=== PATIENT | male | born 1990 | race Caucasian/White ===

== ENCOUNTER 2016-12-31 06:26 | Emergency (ER) | payer BC ==
[2016-12-31] MEDS ORDERED: LIDOCAINE VIS-MYLANTA 30 ML UD PO ONE ×2 (06:40→06:41)
[2016-12-31 06:42] VITALS: TEMP 96.7
--- NOTE | 2016-12-31 06:44 | ED.PDOC ---
History of Present Illness - General Source: patient Exam Limitations: no limitations - History of Present Illness Initial Comments: The patient is a 26-year-old male presenting to the emergency room secondary to the acute onset of severe epigastric pain starting at around 3 AM this morning. He did have some significant heartburn 2 hours prior to that. He took 4 Advil this morningafter the pain started. No vomiting. Minimal nausea. No difficulty with urination or bowel movements. Pain is very central and epigastric. No pain with movement. No pain with percussion of the back. No pain with twisting, turning or taking deep breaths. He was feeling just fine yesterday. He does not take any daily anti-inflammatories. His only daily medication is famciclovir. pain is located just off midline to the right in the epigastric area Timing/Duration: 4-6 hours Severity: severe Improving Factors: nothing Worsening Factors: nothing Associated Symptoms: loss of appetite, malaise, nausea/vomiting <Lennox Mccarthy - Last Filed: 12/31/16 06:42> <Félix Connelly - Last Filed: 12/31/16 07:56> - General Chief Complaint: Abdominal Pain Stated Complaint: abd pain Time Seen by Provider: 12/31/16 06:37 - History of Present Illness Allergies/Adverse Reactions: Allergies Sulfamethoxazole w/Trimethoprim [From Bactrim] Adverse Reaction (Severe, Verified 05/05/15 10:10) Other yeast infection Home Medications: Ambulatory Orders Pantoprazole Tablet [Protonix] 40 mg PO ACBK #30 tab 12/31/16 Promethazine Tab [Phenergan Tablet] 50 mg PO .Q4H PRN #30 tab 12/31/16 Review of Systems - Review of Systems Constitutional: States: no symptoms reported EENTM: States: no symptoms reported Respiratory: States: no symptoms reported Cardiology: States: no symptoms reported Gastrointestinal/Abdominal: States: see HPI Genitourinary: States: no symptoms reported Musculoskeletal: States: no symptoms reported Skin: States: no symptoms reported Neurological: States: no symptoms reported Endocrine: States: no symptoms reported All other Systems: No Change from Baseline <Lennox Mccarthy - Last Filed: 12/31/16 06:42> Past Medical History (General) - Patient Medical History Hx Stroke: No Hx Congestive Heart Failure: No Hx Diabetes: No - Vaccination History Hx Influenza Vaccination: No - 2013 - Social History Hx Tobacco Use: No <Lennox Mccarthy - Last Filed: 12/31/16 06:42> Family Medical History - Family History Father Living Status: Still Living Hx Family Hypertension: Yes Hx Cardiac Disease: Yes <Lennox Mccarthy - Last Filed: 12/31/16 06:42> Physical Exam - Physical Exam General Appearance: Alert, Obvious distress Eye Exam: bilateral normal Ears, Nose, Throat: hearing grossly normal, normal pharynx Neck: full range of motion Respiratory: chest non-tender, lungs clear, normal breath sounds, no respiratory distress, no accessory muscle use Cardiovascular/Chest: normal peripheral pulses, regular rate, rhythm, no edema Peripheral Pulses: radial,right: 2+, radial,left: 2+, dorsalis pedis,right: 2+, dorsalis pedis,left: 2+, posterior tibialis,right: 2+, posterior tibialis,left: 2+ Gastrointestinal/Abdominal: soft, other - fairly pointed epigastric pain just to the right of midline in the upper abdomen. No definite guarding but questionable rebound at 1 point only. 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, no motor/sensory deficits, alert, normal mood/affect - very anxious, oriented x 3 Skin Exam: normal color Comments: Vital Signs - 24 hr 12/31/16 06:39 Temperature 96.7 F L Pulse Rate [ 75 MONITOR] Respiratory 22 Rate Blood Pressure 146/97 [Right Arm] O2 Sat by Pulse 96 Oximetry <Chanel Mccarthyy L - Last Filed: 12/31/16 06:42> Progress - Progress Progress: 12/31/16 07:46 Vital Signs - 8 hr 12/31/16 12/31/16 06:39 07:20 Temperature 96.7 F L Pulse Rate [ 75 65 MONITOR] Respiratory 22 18 Rate Blood Pressure 146/97 141/90 [Right Arm] O2 Sat by Pulse 96 95 Oximetry - EKG/XRAY/CT XRAY: ABD.series-no acute abnormalities;cholelthiasis/radiologist <Félix Connelly R - Last Filed: 12/31/16 07:56> Departure <Lennox Mccarthy L - Last Filed: 12/31/16 06:42> - Departure Time of Disposition: 07:14 Diet: bland diet, other - Avoid greasy,spicy,dairy foods and alcoholic beverages until better <JenniferObdulio sandovalHeard R - Last Filed: 12/31/16 07:56> - Departure Clinical Impression: Abdominal pain Qualifiers: Abdominal location: epigastric Qualified Code(s): R10.13 - Epigastric pain Disposition: Discharge to Home or Self Care Condition: Good Prescriptions: Pantoprazole Tablet [Protonix] 40 mg PO ACBK #30 tab Promethazine Tab [Phenergan Tablet] 50 mg PO .Q4H PRN #30 tab PRN Reason: Nausea Home Medications: Ambulatory Orders Pantoprazole Tablet [Protonix] 40 mg PO ACBK #30 tab 12/31/16 Promethazine Tab [Phenergan Tablet] 50 mg PO .Q4H PRN #30 tab 12/31/16 Additional Instructions: RETURN TO EMERGENCY ROOM NEEDED;PLEASE EXCUSE FROM WORK 2016;Return to regular work 01/04/2017 w/o limitation
[2016-12-31] MEDS ORDERED: SUCRALFATE 1 GM/10 ML 1 GM UD PO ONE (06:46)
[2016-12-31] MEDS ORDERED: PANTOPRAZOLE SODIUM TAB 40 MG PO ONE (06:46)
[2016-12-31 07:25] VITALS: O2SAT 95
--- NOTE | 2016-12-31 07:26 | RAD ---
EXAM: Acute abdominal series. INDICATION: Abdominal pain, acute. COMPARISON: None. FINDINGS: Cardiac silhouette: Unremarkable. Adry: Unremarkable. Lobar consolidation: None. Pleural effusion: None. Pneumothorax: None. Other: There is 7 mm calcification along the right upper quadrant, likely representing a gallstone Intraperitoneal free air: Negative. Bowel: No dilated loops of small bowel or air-fluid levels. Bones: Unremarkable. Other: None. IMPRESSION: Nonspecific, nonobstructed bowel gas pattern. Cholelithiasis. Electronically signed by: Kaleb Noble MD 12/31/2016 7:25 AM CDT Workstation: [id number]
[2016-12-31 08:13] VITALS: BP 126/82
== END 2016-12-31 08:00 | disposition home or self-care (01) ==
LOC: ER 06:26
DX: R10.13 Epigastric pain (principal); Z88.2 Allergy status to sulfonamides; Z88.8 Allergy status to other drugs, medicaments and biological substances

== ENCOUNTER 2017-02-11 22:39 | Emergency (ER) | payer BC ==
--- NOTE | 2017-02-11 23:24 | ED.PDOC ---
History of Present Illness - General Chief Complaint: Abdominal Pain Stated Complaint: epigastric pain Time Seen by Provider: 02/11/17 23:23 Information Source: patient, Vital Signs reviewed Exam Limitations: no limitations - History of Present Illness Initial Comments: Timbo Smith 26 y/o male with previous history of burning epigastric pain awaiting GI evaluation stated he had another bout of same symptoms started today then got worse tonight.He was prescribed h2 blockers on discharge from emergency room last time.He was given gi slider here in er but threw it up.Stated that he ate pizza,fried chicken,and broccoli today. Abdominal Pain Onset Location: epigastric Pain Radiation: no radiation Quality: burning, intermittent Timing/Duration: 7-24 hours Improving Factors: nothing Worsening Factors: nothing Associated Symptoms: denies symptoms, heartburn Review of Systems - Review of Systems Constitutional: States: no symptoms reported EENTM: States: no symptoms reported Respiratory: States: no symptoms reported Cardiology: States: no symptoms reported Gastrointestinal/Abdominal: States: see HPI Genitourinary: States: no symptoms reported Musculoskeletal: States: no symptoms reported Skin: States: no symptoms reported Past Medical History (General) - Patient Medical History Hx Stroke: No Hx Congestive Heart Failure: No Hx Diabetes: No Surgical History: no surgical history - Vaccination History Hx Tetanus, Diphtheria Vaccination: Yes Hx Influenza Vaccination: No - 2013 Hx Pneumococcal Vaccination: No - Social History Hx Tobacco Use: No Hx Alcohol Use: Yes - WEEKENDS Hx Substance Use: No Family Medical History - Family History Father Living Status: Still Living Hx Family Hypertension: Yes Hx Cardiac Disease: Yes Physical Exam - Physical Exam General Appearance: Alert, No apparent distress Eyes, Ears, Nose, Throat Exam: PERRL/EOMI, normal ENT inspection Neck: non-tender, full range of motion, supple Respiratory: chest non-tender, lungs clear Cardiovascular/Chest: normal peripheral pulses, regular rate, rhythm, no murmur Peripheral Pulses: No deficit Gastrointestinal/Abdominal: normal bowel sounds, soft, tenderness - epigastrium Back Exam: normal inspection, no CVA tenderness Extremity: normal range of motion, non-tender, no pedal edema, no calf tenderness Neurologic: alert, normal mood/affect, oriented x 3 Progress - Results/Orders Results/Orders: Vital Signs - 8 hr 02/11/17 23:55 Temperature 97.7 F Pulse Rate [ 72 left] Respiratory 18 Rate Blood Pressure 160/100 [left] O2 Sat by Pulse 99 Oximetry 02/12/17 01:01 Hold Metformin x 48Hrs [id number] Abdomen/Pelvis w/Contrast [CT] Stat Laboratory Results - last 24 hr 02/11/17 02/11/17 02/11/17 00:00 00:00 23:25 WBC 10.4 RBC 4.67 L Hgb 15.0 Hct 44.7 MCV 95.9 H MCH 32.1 H MCHC 33.6 RDW 13.2 Plt Count 241 MPV 8.5 Absolute Neuts (auto) 4.00 Absolute Lymphs (auto) 4.90 H Absolute Monos (auto) 1.20 H Absolute Eos (auto) 0.30 Absolute Basos (auto) 0.00 Neutrophils % 38.6 L Lymphocytes % 46.7 Monocytes % 11.5 H Eosinophils % 2.7 Basophils % 0.5 Sodium 139 Potassium 3.7 Chloride 103 Carbon Dioxide 28 Anion Gap 11.7 L BUN 15 Creatinine 1.26 BUN/Creatinine Ratio 11.9 Random Glucose 122 H Serum Osmolality 279.7 Calcium 8.6 Total Bilirubin 0.6 AST 19 ALT 17 Alkaline Phosphatase 62 Serum Total Protein 7.1 Albumin 4.0 Globulin 3.1 Albumin/Globulin Ratio 1.3 Lipase 37 Urine Color Urine Appearance Urine pH Ur Specific [place] Urine Protein Urine Glucose (UA) Urine Ketones Urine Blood Urine Nitrite Urine Bilirubin Urine Urobilinogen Ur Leukocyte Esterase Urine RBC Urine WBC Ur Epithelial Cells Urine Bacteria Urine Opiates Screen Negative Urine Barbiturates Negative Ur Phencyclidine Scrn Negative U Amphetamin/Meth Scrn Negative U Benzodiazepines Scrn Negative U Cocaine Metab Screen Negative U Cannabinoids Screen Negative 02/12/17 00:23 WBC RBC Hgb Hct MCV MCH MCHC RDW Plt Count MPV Absolute Neuts (auto) Absolute Lymphs (auto) Absolute Monos (auto) Absolute Eos (auto) Absolute Basos (auto) Neutrophils % Lymphocytes % Monocytes % Eosinophils % Basophils % Sodium Potassium Chloride Carbon Dioxide Anion Gap BUN Creatinine BUN/Creatinine Ratio Random Glucose Serum Osmolality Calcium Total Bilirubin AST ALT Alkaline Phosphatase Serum Total Protein Albumin Globulin Albumin/Globulin Ratio Lipase Urine Color Yellow Urine Appearance Clear Urine pH 6.0 Ur Specific [place] 1.025 Urine Protein Negative Urine Glucose (UA) Negative Urine Ketones Negative Urine Blood Negative Urine Nitrite Negative Urine Bilirubin Negative Urine Urobilinogen 0.2 Ur Leukocyte Esterase Negative Urine RBC 0 Urine WBC 0-1 Ur Epithelial Cells 0 Urine Bacteria 1+ Urine Opiates Screen Urine Barbiturates Ur Phencyclidine Scrn U Amphetamin/Meth Scrn U Benzodiazepines Scrn U Cocaine Metab Screen U Cannabinoids Screen Departure - Departure Clinical Impression: Abdominal pain Qualifiers: Abdominal location: epigastric Qualified Code(s): R10.13 - Epigastric pain Choledocholithiasis with obstruction Qualifiers: Cholecystitis presence: without cholecystitis Qualified Code(s): K80.51 - Calculus of bile duct without cholangitis or cholecystitis with obstruction Time of Disposition: 02:15 - D/W Dr. Richard Byrd - URS Disposition: Transfer to Hospital Condition: Fair Home Medications: Ambulatory Orders Pantoprazole Tablet [Protonix] 40 mg PO ACBK #30 tab 12/31/16 Promethazine Tab [Phenergan Tablet] 50 mg PO .Q4H PRN #30 tab 12/31/16 Transfer to Outside Facility - Transfer Information Accepting Provider:: Dr. Richard Byrd Accepting Facility: [facility] Reason for Transfer: required specialist not available
[2017-02-11] MEDS ORDERED: LIDOCAINE VIS-MYLANTA 30 ML UD PO ONE (23:25)
[2017-02-11] MEDS ORDERED: SUCRALFATE 1 GM/10 ML 1 GM UD PO ONE (23:25)
[2017-02-11] MEDS ORDERED: PANTOPRAZOLE INJECTION 80 MG in SODIUM CHLORIDE 0.9% 100ML 80 ML IVPB ONE (23:26)
[2017-02-11] MEDS ORDERED: DICYCLOMINE HCL INJ 20 MG/2 ML AMP IM ONE (23:26)
[2017-02-11] MEDS ORDERED: SODIUM CHLORIDE 0.9% 100ML 100 ML IVPB ONE (23:31)
[2017-02-11] MEDS ORDERED: PANTOPRAZOLE SODIUM IV 40 MG VIAL ONE (23:31)
[2017-02-12] MEDS ORDERED: SODIUM CHLORIDE 0.9% 1000ML 1,000 ML IVS ONE (00:05)
[2017-02-12] MEDS ORDERED: MORPHINE SULFATE INJ 10 MG/ML VIAL IV ONE (00:07)
[2017-02-12] MEDS ORDERED: PROMETHAZINE HCL INJ 25 MG/ML VIAL IM ONE (00:07)
[2017-02-12] MEDS ORDERED: SUCRALFATE 1 GM/10 ML 1 GM UD ONE (01:25)
[2017-02-12] MEDS ORDERED: SUCRALFATE 1 GM/10 ML 1 GM UD PO ONE (01:26)
--- NOTE | 2017-02-12 01:54 | CT ---
Procedure: CT ABDOMEN PELVIS WITH IV CONTRAST Exam Date: 02/12/2017 Ordering Provider: Félix Connelly Clinical Indication: Generalized abdominal pain Comparison: None TECHNIQUE: 5 mm images were taken through the abdomen and pelvis after the administration of nonionic intravenous contrast material. Oral contrast was not administered. Coronal and sagittal reformatted images were generated. This exam was performed according to our departmental dose optimization program which includes use of automated exposure control, adjustment of the mA and/or kV according to patient size and/or use of iterative reconstruction technique. FINDINGS: Lower chest: Nonacute Abdomen: Liver and biliary system: No liver lesions. No biliary ductal dilatation. There is an 8 mm stone which appears to be in the cystic duct. There is no CT evidence of acute cholecystitis. Spleen: Unremarkable Pancreas: Unremarkable Adrenal glands: Unremarkable Kidneys: Unremarkable. No hydronephrosis. Lymph nodes: No lymphadenopathy Retroperitoneum, abdominal wall, peritoneal cavity: No ascites. No free intraperitoneal air. Vessels: No abdominal aortic aneurysm. Pelvis: Lymph nodes: No lymphadenopathy Bowel: No bowel obstruction. No bowel wall thickening. Appendix is not visualized. There are no secondary findings to suggest acute appendicitis. No bowel wall thickening. Bladder: Unremarkable Pelvic organs: Unremarkable Bones: Nonacute IMPRESSION: 1. There is an 8 mm stone which appears to be lodged in the cystic duct. No CT evidence of acute cholecystitis. No biliary ductal dilatation. Electronically signed by: Brad Esparza MD 02/12/2017 1:53 AM CDT
[2017-02-12] MEDS ORDERED: SODIUM CHLORIDE 0.9% 1000ML 1,000 ML IVS PRN (02:10)
[2017-02-12 02:16] VITALS: O2SAT 95
[2017-02-12 06:14] VITALS: BP 144/86; TEMP 98.9
== END 2017-02-12 06:25 | disposition short-term general hospital (02) ==
LOC: ER 22:39
DX: K80.51 Calculus of bile duct without cholangitis or cholecystitis with obstruction (principal)
CPT/HCPCS: J0500; J7050

== ENCOUNTER → 2017-04-27 | Outpatient (CLI) | payer BC ==
--- NOTE | 2017-04-28 11:17 | US ---
EXAM DESCRIPTION: Breast,Bilateral: Ultrasound. CLINICAL HISTORY: 26 [id number]. Breast tenderness since a teenager. Testosterone cream therapy for past two years. Scraped right chest wall and breast against piece of equipment one week ago, more tender. Feels swollen lateral to the right nipple. COMPARISON: None. TECHNIQUE: Transcutaneous scanning of the bilateral breasts utilizing two-dimensional and Doppler modes. Scanning performed by the senior bi developer and Dr. Gee. FINDINGS: Heterogeneous fatty and fibroglandular tissues surrounding both nipples. No discrete solid mass. No cyst. No parenchymal edema. IMPRESSION: BI-RADS CATEGORY: 2 - BENIGN FINDINGS. FOLLOW UP: No further imaging is recommended. Based upon Clinical findings. The findings and the follow-up plan were reviewed in person with the patient after the examination. Written communication explaining the IMPRESSION and follow-up, will be mailed to the patient and referring health care provider. Electronically signed by: Farooq Gee MD 04/28/2017 11:16 AM CDT
== END | disposition home or self-care (01) ==
LOC: US 16:41
PROVIDERS: ATTEND Nurse Practitioner Family
DX: N64.4 Mastodynia (principal)

== ENCOUNTER 2017-06-06 17:01 | Emergency (ER) | payer BC ==
--- NOTE | 2017-06-06 17:07 | ED.PDOC ---
History of Present Illness - General Chief Complaint: Drug or Alcohol Abuse Stated Complaint: took multiple pain pills with alcohol Time Seen by Provider: 06/06/17 17:06 Source: patient Exam Limitations: no limitations - History of Present Illness Initial Comments: Timbo Smith 26 y/o male brought here to hospital with nausea/vomiting / chest pains sharp non radiating stated he started smoking marijuana this am then followed it up drinking several cans of beer 6 cans then took xanax and tramadol unknown quantity-.Denies suicidal thoughts or attempts. Timing/Duration: 4-6 hours Severity: moderate Improving Factors: nothing Worsening Factors: nothing Associated Symptoms: other - see hpi Allergies/Adverse Reactions: Allergies Sulfamethoxazole w/Trimethoprim [From Bactrim] Adverse Reaction (Severe, Verified 05/05/15 10:10) Other yeast infection Home Medications: Ambulatory Orders Citalopram Hydrobromide 06/06/17 Testosterone 06/06/17 Review of Systems - Review of Systems Constitutional: States: no symptoms reported EENTM: States: no symptoms reported Respiratory: States: no symptoms reported Cardiology: States: see HPI Gastrointestinal/Abdominal: States: see HPI Genitourinary: States: no symptoms reported Neurological: States: see HPI Past Medical History (General) - Patient Medical History Hx Stroke: No Hx Congestive Heart Failure: No Hx Diabetes: No Hx Other PMH: Yes - gallstone;skin rash-psoriasis Surgical History: cholecystectomy - Vaccination History Hx Tetanus, Diphtheria Vaccination: Yes Hx Influenza Vaccination: No - 2013 Hx Pneumococcal Vaccination: No - Social History Hx Tobacco Use: No Hx Chewing Tobacco Use: No Hx Alcohol Use: Yes - WEEKENDS Hx Substance Use: No Hx Physical Abuse: No Hx Emotional Abuse: No Hx Suspected Abuse: No - Activities of Daily Living Patient Lives Alone: No - family - Female History Patient : No Family Medical History - Family History Father Living Status: Still Living Hx Family Hypertension: Yes Hx Cardiac Disease: Yes Hx Family;Other: psoriasis-multiple family members Physical Exam - Physical Exam General Appearance: Anxious, No apparent distress Eye Exam: bilateral normal Ears, Nose, Throat: hearing grossly normal, normal pharynx Neck: full range of motion, supple Respiratory: lungs clear, normal breath sounds Cardiovascular/Chest: normal peripheral pulses, no gallop, no murmur, tachycardia - heart rate-130 Peripheral Pulses: radial,right: 2+, radial,left: 2+ Gastrointestinal/Abdominal: non tender, soft, no organomegaly Back Exam: no CVA tenderness, no vertebral tenderness Extremity: no pedal edema, no calf tenderness Neurologic: no motor/sensory deficits, oriented x 3 Skin Exam: normal color, warm/dry, rash - psoriatic abdominal area and some on extremities Lymphatic: no adenopathy Progress - Progress Progress: 06/06/17 18:38 Last Vital Signs Temp 96.2 F L 06/06/17 17:11 Pulse 109 H 06/06/17 18:01 Resp 16 06/06/17 18:01 BP 194/94 06/06/17 18:01 Pulse Ox 99 06/06/17 18:01 06/06/17 18:57 Last Vital Signs Temp 96.2 F L 06/06/17 17:11 Pulse 109 H 06/06/17 18:01 Resp 16 06/06/17 18:01 BP 194/94 06/06/17 18:01 Pulse Ox 99 06/06/17 18:01 06/06/17 19:04 Beryl better after throwing up noted he was on his cell phone textting 06/06/17 19:33 Patient awake feeling comfortable was on his cell phone texting as well as talking to girlfriend was ask why he did it and he didn't know why he did it going home with girlfriend denies alcohol or illicit drug use in the past 06/06/17 19:36 - Results/Orders Results/Orders: Laboratory Tests 06/06/17 06/06/17 06/06/17 17:18 18:03 18:03 WBC 13.7 H RBC 4.94 Hgb 15.4 Hct 46.3 MCV 93.7 MCH 31.2 H MCHC 33.4 RDW 12.4 Plt Count 263 MPV 8.9 Absolute Neuts (auto) 5.60 Absolute Lymphs (auto) 6.30 H Absolute Monos (auto) 1.40 H Absolute Eos (auto) 0.30 Absolute Basos (auto) 0.10 Neutrophils % 41.1 L Lymphocytes % 46.3 Monocytes % 10.3 H Eosinophils % 1.9 Basophils % 0.4 PT 10.5 INR 0.930 PTT (SP) 23.9 L Sodium 137 Potassium 2.7 L Chloride 101 Carbon Dioxide 26 Anion Gap 12.7 BUN 13 Creatinine 1.20 BUN/Creatinine Ratio 10.8 Random Glucose 122 H Serum Osmolality 275.2 Calcium 9.1 Magnesium 2.0 Total Bilirubin 2.7 H* Direct Bilirubin 0.3 H Indirect Bilirubin 2.4 H AST 29 ALT 36 Alkaline Phosphatase 59 Creatine Kinase 236 H* CK-MB (CK-2) 3.4 CK-MB (CK-2) % Not Reportable Troponin I < 0.02 Serum Total Protein 7.2 Albumin 4.4 Lipase 20 L Salicylates < 4.0 Acetaminophen < 10.0 L Ethyl Alcohol < 5.40 - EKG/XRAY/CT EKG: Sinus, Tachy, no ST T wave changes Comments: heart rate-130,LAE,Pvc XRAY: abdomen - no acute abnormalities noted Departure - Departure Clinical Impression: Alcohol use, Skin rash Nausea & vomiting Qualifiers: Vomiting type: unspecified Vomiting Intractability: non-intractable Qualified Code(s): R11.2 - Nausea with vomiting, unspecified Chest pain Qualifiers: Chest pain type: unspecified Qualified Code(s): R07.9 - Chest pain, unspecified Ingested substance, unknown drug Qualifiers: Encounter type: initial encounter Injury intent: undetermined intent Qualified Code(s): T50.904A - Poisoning by unspecified drugs, medicaments and biological substances, undetermined, initial encounter Time of Disposition: 19:37 Disposition: Discharge to Home or Self Care Condition: Good Departure Forms: ED Discharge - Pt. Copy, Patient Portal Self Enrollment Instructions: DI for Alcohol Abuse and Alcoholism, DI for Drug Abuse and Drug Addiction, DI for Drug Overdose in Adults Referrals: Saba Ochoa NP [Primary Care Provider] - 1-2 Weeks Home Medications: Ambulatory Orders Citalopram Hydrobromide 06/06/17 Testosterone 06/06/17 Additional Instructions: RETURN TO ER NEEDED;Follow up with primary md in am as needed
[2017-06-06 17:15] VITALS: TEMP 96.2
[2017-06-06] MEDS ORDERED: LACTATED RINGERS 1,000 ML IVS ONE (17:23)
[2017-06-06 18:13] VITALS: O2SAT 99
--- NOTE | 2017-06-06 18:37 | RAD ---
EXAM DESCRIPTION: Abdomen 1 View CLINICAL HISTORY: vomiting,chest pain COMPARISON: 12/31/2016 FINDINGS: Single supine view of the abdomen was submitted. There is no evidence of bowel obstruction. There is no abnormal calcification within the abdomen. There is no acute osseous process visualized. IMPRESSION: No acute abnormalities. Electronically signed by: Farooq Bains 06/06/2017 6:36 PM [facility]
[2017-06-06 19:55] VITALS: BP 157/102
== END 2017-06-06 19:52 | disposition home or self-care (01) ==
LOC: ER 17:01
DX: T42.4X4A Poisoning by benzodiazepines, undetermined, initial encounter (principal); T40.4X4A Poisoning by other synthetic narcotics, undetermined, initial encounter; R11.2 Nausea with vomiting, unspecified; R07.9 Chest pain, unspecified; R21 Rash and other nonspecific skin eruption; F10.10 Alcohol abuse, uncomplicated; Z88.2 Allergy status to sulfonamides
CPT/HCPCS: 36415; 74000; 80048; 80076; 80320; 80329; 82550; 82553; 83690; 84484; 85025; 85610; 85730; 93005; J2060; J7120

== ENCOUNTER 2018-03-15 06:25 | Emergency (ER) | payer BC ==
[2018-03-15 06:34] VITALS: TEMP 97.6; O2SAT 98
[2018-03-15] MEDS ORDERED: predniSONE 20 MG TAB PO ONE (06:46)
[2018-03-15] MEDS ORDERED: CYCLOBENZAPRINE HCL 10 MG TAB PO ONE (06:47)
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
[2018-03-15] MEDS ORDERED: KETOROLAC TROMETHAMINE INJ 30 MG/ML VIAL IM ONE (06:55)
--- NOTE | 2018-03-15 07:22 | RAD ---
PROCEDURE: Ribs,Right 2 Views Clinical History: pain right ant lateral chest 3 d Indication: Same as above Comparison: Chest x-ray done concurrently . Technique: Three Views of the right sided ribs were done Findings: Contour abnormality in the posterolateral aspect of the right seventh rib is suspicious for an age-indeterminate fracture There are no discrete airspace infiltrates, pneumothoraces or pleural effusions in the visualized lung holliday. The soft tissues are radiographically unremarkable. There is no visualization of any radiopaque foreign bodies in the evaluated soft tissues. Nondisplaced acute rib fractures are frequently radiographically occult. Impression: Contour abnormality in the posterolateral aspect of the right seventh rib is suspicious for an age-indeterminate fracture Location of Interpretation: [facility] Electronically signed by: Marco Pelaez MD 03/15/2018 7:21 AM CDT Workstation: [id number]
--- NOTE | 2018-03-15 07:23 | RAD ---
PROCEDURE: Chest,2 Views CLINICAL HISTORY: pain right ant lateral chest 3 d INDICATION: Same as above COMPARISON: None TECHNIQUE: PA and and lateral chest radiographs were obtained. FINDINGS: The lung holliday are well inflated. There are no discrete airspace infiltrates, pneumothoraces or pleural effusions. The pulmonary vascularity is normal The cardiomediastinal silhouette is unremarkable for patient's age and sex. IMPRESSION: There is no acute pleural-parenchymal process seen in the imaged lung holliday. Place of interpretation: [facility]. Electronically signed by: Marco Pelaez MD 03/15/2018 7:22 AM CDT Workstation: [id number]
[2018-03-15 07:42] VITALS: BP 141/77
== END 2018-03-15 07:42 | disposition home or self-care (01) ==
LOC: ER 06:25
DX: S22.31XA Fracture of one rib, right side, initial encounter for closed fracture (principal); R07.1 Chest pain on breathing; R00.1 Bradycardia, unspecified; E07.9 Disorder of thyroid, unspecified; F32.9 Major depressive disorder, single episode, unspecified; Y04.0XXA Assault by unarmed brawl or fight, initial encounter; Z88.2 Allergy status to sulfonamides; Z87.891 Personal history of nicotine dependence; Y92.9 Unspecified place or not applicable
CPT/HCPCS: 71046; 71100; 93005; J1885; J7512

== ENCOUNTER → 2018-12-16 | Outpatient (CLI) | payer BC | LOC: LAB.O 15:27 | PROVIDERS: ATTEND Family Medicine | DX: F90.9 Attention-deficit hyperactivity disorder, unspecified type (principal) ==

== ENCOUNTER → 2019-01-04 | Outpatient (CLI) | payer BC ==
--- NOTE | 2019-01-05 07:27 | RAD ---
EXAM: Wrist,Right 3 Views CLINICAL HISTORY: PAIN IN RIGHT WRIST. TECHNIQUE: AP, lateral and oblique images. COMPARISON STUDY: None FINDINGS: Bone structures and joint spaces appear normal. No fracture or dislocation identified. IMPRESSION: Negative right wrist. Electronically signed by: Glenroy Zamarripa MD 01/05/2019 7:24 AM CDT
== END ==
LOC: RAD 08:01
PROVIDERS: ATTEND Orthopaedic Surgery
DX: M25.531 Pain in right wrist (principal)

== ENCOUNTER 2020-05-23 07:16 | Emergency (ER) | payer BC, OTHER ==
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
[2020-05-23 07:34] VITALS: BP 173/111; TEMP 97.8
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
[2020-05-23 08:16] VITALS: O2SAT 97
== END 2020-05-23 08:17 | disposition home or self-care (01) ==
LOC: ER 07:16
DX: S06.0X0A Concussion without loss of consciousness, initial encounter (principal); R68.84 Jaw pain; E07.9 Disorder of thyroid, unspecified; F32.9 Major depressive disorder, single episode, unspecified; V40.5XXA Car driver injured in collision with pedestrian or animal in traffic accident, initial encounter; Y92.410 Unspecified street and highway as the place of occurrence of the external cause; Z87.891 Personal history of nicotine dependence; Z88.2 Allergy status to sulfonamides